=== PATIENT | male | born 1995 | race Caucasian/White ===

== ENCOUNTER 2018-12-11 21:02 | Emergency (ER) | payer OTHER ==
[~2018-12-11] VITALS: Ht 182.9 cm; Wt 152.0 kg
[2018-12-11 21:17] VITALS: BP 156/88
[2018-12-11] MEDS ORDERED: LIDOCAINE 1%-EPI 1:100,000 20 ML VIAL ONE (21:37)
[2018-12-11] MEDS ORDERED: MORPHINE SULFATE INJ 4 MG/ML DISP.SYRIN ONE (21:40)
[2018-12-11] MEDS ORDERED: LIDOCAINE 1%-EPI 1:100,000 20 ML VIAL TP ONE (22:00)
[2018-12-11] MEDS ORDERED: MORPHINE SULFATE INJ 4 MG/ML DISP.SYRIN IM ONE (22:00)
== END 2018-12-11 22:22 | disposition home or self-care (01) ==
LOC: ER 21:10
DX: L02.31 Cutaneous abscess of buttock (principal); F17.200 Nicotine dependence, unspecified, uncomplicated; E11.65 Type 2 diabetes mellitus with hyperglycemia; E66.01 Morbid (severe) obesity due to excess calories; Z68.42 Body mass index [BMI] 45.0-49.9, adult
CPT/HCPCS: 10060; 82962; 96372; 99283; 99406; A6253; A6407; J2270; J3490

== ENCOUNTER 2018-12-13 12:12 | Emergency (ER) | payer OTHER ==
[~2018-12-13] VITALS: Ht 182.9 cm; Wt 150.1 kg
[2018-12-13 12:20] VITALS: BP 144/79
== END 2018-12-13 12:45 | disposition home or self-care (01) ==
LOC: ER 12:12
DX: L02.31 Cutaneous abscess of buttock (principal); E11.9 Type 2 diabetes mellitus without complications

== ENCOUNTER 2019-02-22 14:16 | Emergency (ER) | payer OTHER ==
[~2019-02-22] VITALS: Ht 182.9 cm; Wt 149.7 kg
--- NOTE | 2019-02-22 14:25 | NUR ---
CAME IN FOR ABSCESS ON LEFT BUTTOCK, ALSO C/O REDNESS AT PENILE AREA. TO ER BED 2, HOOKED TO MONITOR, CHANGED TO HOSP GOWN, PROVIDED WW ARM BLANKET, AWAITING MD EVERETT
--- NOTE | 2019-02-22 14:33 | NUR ---
LEYDI JUAREZ AT BEDSIDE
[2019-02-22] MEDS ORDERED: LIDOCAINE 1%-EPI 1:100,000 20 ML VIAL ONE (14:39)
--- NOTE | 2019-02-22 14:48 | NUR ---
LEYDI JUAREZ AT BEDSIDE FOR I&D
--- NOTE | 2019-02-22 15:24 | NUR ---
Patient discharged to home in stable condition. Written and verbal after care instructions given. Patient verbalizes understanding of instruction.
[2019-02-22 15:25] VITALS: BP 149/85
== END 2019-02-22 15:26 | disposition home or self-care (01) ==
LOC: ER 14:17
DX: L02.31 Cutaneous abscess of buttock (principal); B37.42 Candidal balanitis; E11.65 Type 2 diabetes mellitus with hyperglycemia; E11.649 Type 2 diabetes mellitus with hypoglycemia without coma; F17.200 Nicotine dependence, unspecified, uncomplicated; E66.9 Obesity, unspecified; Z68.41 Body mass index [BMI] 40.0-44.9, adult
CPT/HCPCS: 10060; 82962; 99283; 99406; A6403; A6407; J3490

== ENCOUNTER 2019-02-24 14:26 | Emergency (ER) | payer OTHER ==
[~2019-02-24] VITALS: Ht 182.9 cm; Wt 149.7 kg
[2019-02-24 14:30] VITALS: BP 145/67
--- NOTE | 2019-02-24 15:00 | NUR ---
I&D DONE BY CLARENCE HOLLEY.
--- NOTE | 2019-02-24 15:01 | NUR ---
Patient discharged to home in stable condition. Written and verbal after care instructions given. Patient verbalizes understanding of instruction.
== END 2019-02-24 15:02 | disposition home or self-care (01) ==
LOC: ER 14:26
DX: L02.31 Cutaneous abscess of buttock (principal); E11.649 Type 2 diabetes mellitus with hypoglycemia without coma; F17.200 Nicotine dependence, unspecified, uncomplicated; E66.9 Obesity, unspecified; Z68.41 Body mass index [BMI] 40.0-44.9, adult

== ENCOUNTER 2019-05-11 22:54 | Emergency (ER) | payer OTHER ==
[~2019-05-11] VITALS: Ht 182.9 cm; Wt 150.6 kg
[2019-05-11 23:07] VITALS: BP 159/83
[2019-05-11] MEDS ORDERED: HYDROCODONE/APAP 5/325MG 1 EACH TABLET ONE (23:57)
[2019-05-11] MEDS ORDERED: LIDOCAINE 1%-EPI 1:100,000 20 ML VIAL ONE (23:59)
[2019-05-12] MEDS ORDERED: HYDROCODONE/APAP 5/325MG 1 EACH TABLET PO ONE
--- NOTE | 2019-05-12 00:01 | NUR ---
PA AT BEDSIDE FOR WOUND CARE
--- NOTE | 2019-05-12 00:41 | NUR ---
Patient discharged to home in stable condition. Written and verbal after care instructions given. Patient verbalizes understanding of instruction.
== END 2019-05-12 00:42 | disposition home or self-care (01) ==
LOC: ER 23:00
DX: L02.211 Cutaneous abscess of abdominal wall (principal); E11.9 Type 2 diabetes mellitus without complications; E66.9 Obesity, unspecified; Z68.42 Body mass index [BMI] 45.0-49.9, adult
CPT/HCPCS: 10060; 82962; 99283; A6407; J3490

== ENCOUNTER 2020-01-24 21:33 | Emergency (ER) | payer OTHER ==
[~2020-01-24] VITALS: Ht 182.9 cm; Wt 145.1 kg
[2020-01-24 22:09] LABS: BASOPHILS % (AUTO) 0.4 % (0.0-2.0); EOSINOPHILS % (AUTO) 0.9 % (0.0-6.0); HEMATOCRIT 47 % (39-51); HEMOGLOBIN 15.9 g/dL (13.5-17.5); LYMPHOCYTES # (AUTO) 2.4 /CMM (0.8-4.8); LYMPHOCYTES % (AUTO) 25.5 % (20.0-44.0); MEAN CORPUSCULAR HGB CONC 34 g/dl (31.0-36.0); MEAN CORPUSCULAR VOLUME 86 fL (80-96); MONOCYTES # (AUTO) 0.8 /CMM (0.1-1.30); MONOCYTES % (AUTO) 8.8 % (2.0-12.0); NEUTROPHILS # (AUTO) 6.2 /CMM (1.8-8.9); NEUTROPHILS % (AUTO) 64.4 % (43.0-81.0); PLATELET COUNT (AUTO) 254 /CMM (150-450); RED BLOOD CELL COUNT(AUTO) 5.48 MIL/uL (4.5-6.0); WHITE BLOOD COUNT (AUTO) 9.6 K/uL (4.3-11.0)
[2020-01-24] MEDS: IV NS 0.9% 500 ML BAG IV ONE (22:09)
[2020-01-24] MEDS: IV NS 0.9% 1,000 ML BAG IV ONE (22:09)
[2020-01-24] MEDS ORDERED: ONDANSETRON HCL/PF 4 MG/2 ML VIAL ONE (22:11)
[2020-01-24] MEDS ORDERED: KETOROLAC TROMETHAMINE INJ 30 MG/ML VIAL ONE (22:11)
[2020-01-24] MEDS: KETOROLAC TROMETHAMINE INJ 30 MG/ML VIAL IV ONE (22:17)
[2020-01-24] MEDS: ONDANSETRON HCL/PF 4 MG/2 ML VIAL IVP ONE (22:17)
[2020-01-24 22:18] LABS: CALCIUM, SERUM 8.7 mg/dL (8.5-10.1); CREATININE 0.7 mg/dL (0.6-1.3); POTASSIUM 3.9 mmol/L (3.5-5.1)
[2020-01-24 22:22] LABS: ALBUMIN 3.5 g/dL (3.4-5.0); BILIRUBIN,DIRECT 0.1 mg/dL (0.0-0.2); BILIRUBIN,TOTAL 0.2 mg/dL (0.2-1.0); TOTAL PROTEIN, SERUM 8.1 g/dL (6.4-8.2)
[2020-01-25 00:06] VITALS: BP 122/74
== END 2020-01-25 00:07 | disposition home or self-care (01) ==
LOC: ER 21:35
DX: R10.11 Right upper quadrant pain (principal); E11.65 Type 2 diabetes mellitus with hyperglycemia; E66.01 Morbid (severe) obesity due to excess calories; Z68.41 Body mass index [BMI] 40.0-44.9, adult; Z79.84 Long term (current) use of oral hypoglycemic drugs
CPT/HCPCS: 36415; 71045; 76705; 80048; 80076; 83690; 85025; 96361; 96374; 99285; J1885; J2405; J7030; J7040

== ENCOUNTER 2021-03-23 16:45 | Emergency (ER) | payer OTHER ==
[~2021-03-23] VITALS: Ht 182.9 cm; Wt 145.1 kg
[2021-03-23 17:17] VITALS: BP 141/76
--- NOTE | 2021-03-23 17:20 | NUR ---
PT BIBSELF C/O ABSCESS, TO L BUTTOCK. PT FIRST NOTICED IT 5 DAYS AGO. SKIN INTACT. SURROUNDING SKIN WNL; PINK. PT A/OX4.
[2021-03-23] MEDS ORDERED: LIDOCAINE 1%-EPI 1:100,000 20 ML VIAL TP ONE (18:30)
[2021-03-23] MEDS ORDERED: LIDOCAINE 1%-EPI 1:100,000 20 ML VIAL ONE (18:34)
--- NOTE | 2021-03-23 19:11 | NUR ---
LUKASZ HOLLEY AT PT'S BEDSIDE FOR WOUND CARE
[2021-03-23] MEDS ORDERED: SULF1TAB48 PO (19:27)
--- NOTE | 2021-03-23 20:14 | NUR ---
Patient discharged to home in stable condition. Written and verbal after care instructions given. Patient verbalizes understanding of instruction.
== END 2021-03-23 20:17 | disposition home or self-care (01) ==
LOC: ER 16:51
DX: L02.31 Cutaneous abscess of buttock (principal); E11.9 Type 2 diabetes mellitus without complications
CPT/HCPCS: 10060; 99283; A6403; J3490

== ENCOUNTER 2021-03-25 20:02 | Emergency (ER) | payer OTHER ==
[~2021-03-25] VITALS: Ht 175.3 cm; Wt 111.1 kg
[~2021-03-25 20:02] MED LIST: SULF1TAB48 PO
[2021-03-25 20:24] VITALS: BP 134/88
--- NOTE | 2021-03-25 20:24 | NUR ---
BERTA ZALDIVAR FROM HOME C/O WOUND CHECK
[2021-03-25] MEDS ORDERED: CEPH500T PO (20:29)
--- NOTE | 2021-03-25 20:35 | NUR ---
Patient discharged to home in stable condition. Written and verbal after care instructions given. Patient verbalizes understanding of instruction. PT ambulatory with a steady gait
== END 2021-03-25 21:30 | disposition home or self-care (01) ==
LOC: ER 20:04
DX: Z48.00 Encounter for change or removal of nonsurgical wound dressing (principal); L02.31 Cutaneous abscess of buttock; E11.9 Type 2 diabetes mellitus without complications; F17.200 Nicotine dependence, unspecified, uncomplicated

== ENCOUNTER 2021-05-24 21:11 | Emergency (ER) | payer OTHER ==
[~2021-05-24] VITALS: Ht 182.9 cm; Wt 145.1 kg
[~2021-05-24 21:11] MED LIST changes: +CEPH500T PO
--- NOTE | 2021-05-24 23:19 | NUR ---
BIBS C/O RIGHT LOWER QUADRANT PAIN [id number]. PATIENT ALERT AND ORIENTED X3. AMBULATORY WITH NON LABORED BREATHING PLACED IN A GOWN ON BED 2 ON MONITOR AWAITING MD EVERETT.
--- NOTE | 2021-05-24 23:32 | NUR ---
URINE COLLECTED AND SENT TO LAB
--- NOTE | 2021-05-24 23:46 | NUR ---
PT TAKEN FOR CT SCAN
[2021-05-24 23:56] LABS: BASOPHILS # (AUTO) 0.1 K/uL (0.0-0.2); BASOPHILS % (AUTO) 0.9 % (0.0-2.0); EOSINOPHILS % (AUTO) 1.5 % (0.0-6.0); HEMATOCRIT 47 % (39-51); HEMOGLOBIN 15.7 g/dL (13.5-17.5); LYMPHOCYTES # (AUTO) 3.1 K/uL (0.8-4.8); LYMPHOCYTES % (AUTO) 32.3 % (20.0-44.0); MEAN CORPUSCULAR HGB CONC 34 g/dl (31.0-36.0); MEAN CORPUSCULAR VOLUME 82 fL (80-96); MONOCYTES # (AUTO) 1.1 K/uL (0.1-1.30); MONOCYTES % (AUTO) 11.7 % (2.0-12.0); NEUTROPHILS # (AUTO) 5.1 K/uL (1.8-8.9); NEUTROPHILS % (AUTO) 53.6 % (43.0-81.0); PLATELET COUNT (AUTO) 263 K/uL (150-450); RED BLOOD CELL COUNT(AUTO) 5.65 MIL/uL (4.5-6.0); WHITE BLOOD COUNT (AUTO) 9.6 K/uL (4.3-11.0)
[2021-05-25 00:36] LABS: ALBUMIN 3.6 g/dL (3.4-5.0); BILIRUBIN,DIRECT 0.1 mg/dL (0.0-0.2); BILIRUBIN,TOTAL 0.3 mg/dL (0.2-1.0); CALCIUM, SERUM 8.8 mg/dL (8.5-10.1); CREATININE 0.8 mg/dL (0.6-1.3); POTASSIUM 4.1 mmol/L (3.5-5.1)
[2021-05-25 01:00] LABS: BILIRUBIN,URINE NEGATIVE (NEGATIVE); COLOR,URINE YELLOW (YELLOW); LEUKOCYTE ESTERASE ,URINE NEGATIVE (NEGATIVE); NITRITE, URINE NEGATIVE (NEGATIVE); PROTEIN,URINE NEGATIVE (NEGATIVE); UGLUCOSE >=1000 mg/dL (NEGATIVE); UROBILINOGEN,URINE 0.2 EU/dL (0.2)
[2021-05-25 01:06] LABS: BACTERIA,URINE None seen /HPF (None Seen); RBC,URINE 0-2 /HPF (0-2); SQUAMOUS EPITHELIAL CELL,UR Few /HPF (None Seen); WBC,URINE 0-2 /HPF (0-3)
[2021-05-25] MEDS ORDERED: IOHEXOL-300 100 ML VIAL IV ONE (01:21)
[2021-05-25] MEDS ORDERED: DIATR MEGLU/DIATRIZOATE SODIUM 120 ML BOTTLE (GASTROGRAPHIN) ONE (01:21)
[2021-05-25] MEDS ORDERED: IV NS 0.9% 250 ML IV ONE (01:36)
--- NOTE | 2021-05-25 01:45 | NUR ---
IV LINE ESTABLISHED , RAC 20G
--- NOTE | 2021-05-25 04:28 | NUR ---
CALLED [facility] TO HAVE IMAGES READ. RADIOLOGIST READING IMAGE NOW
[2021-05-25] MEDS ORDERED: AMOX-430 PO (05:11)
--- NOTE | 2021-05-25 05:13 | NUR ---
Patient discharged to home in stable condition. Written and verbal after care instructions given. Patient verbalizes understanding of instruction.
[2021-05-25 05:22] VITALS: BP 131/70
== END 2021-05-25 05:22 | disposition home or self-care (01) ==
LOC: ER 21:16
DX: K52.9 Noninfective gastroenteritis and colitis, unspecified (principal); K59.00 Constipation, unspecified; K76.0 Fatty (change of) liver, not elsewhere classified; E11.9 Type 2 diabetes mellitus without complications; F17.200 Nicotine dependence, unspecified, uncomplicated
CPT/HCPCS: 36415; 74176; 74177; 80048; 80076; 81001; 83690; 85025; 99285; J7050; Q9963; Q9967

== ENCOUNTER 2022-02-21 21:52 | Emergency (ER) | payer OTHER ==
[~2022-02-21] VITALS: Ht 182.9 cm; Wt 145.1 kg
[~2022-02-21 21:52] MED LIST changes: +AMOX-430 PO
--- NOTE | 2022-02-21 22:14 | NUR ---
DR JIM AT [facility] SIDE
--- NOTE | 2022-02-21 22:15 | NUR ---
BIBS FOR C/O L SIDED CP AND SOB X 2 HOURS. PT AOX4. O2 SAT 94% ON RA. COUGHING. PT AMBULATORY. CONNECTED TO MONITOR AND PULSE OX
[2022-02-21] MEDS ORDERED: ALBUTEROL FS 2.5 MG/0.5 ML VIAL.NEB ONE (22:24)
--- NOTE | 2022-02-21 22:29 | NUR ---
BLOOD DRAWN AND SENT TO LAB
[2022-02-21] MEDS ORDERED: ALBUTEROL FS 2.5 MG/0.5 ML VIAL.NEB NEB ONE (22:30)
--- NOTE | 2022-02-21 22:36 | NUR ---
COVID SWAB DONE SENT TO LAB
[2022-02-21 22:45] LABS: BASOPHILS % (AUTO) 0.6 % (0.0-2.0); EOSINOPHILS % (AUTO) 1.2 % (0.0-6.0); HEMATOCRIT 46 % (39-51); HEMOGLOBIN 15.5 g/dL (13.5-17.5); LYMPHOCYTES # (AUTO) 2.4 K/uL (0.8-4.8); LYMPHOCYTES % (AUTO) 36.6 % (20.0-44.0); MEAN CORPUSCULAR HGB CONC 34 g/dl (31.0-36.0); MEAN CORPUSCULAR VOLUME 83 fL (80-96); MONOCYTES # (AUTO) 0.6 K/uL (0.1-1.30); MONOCYTES % (AUTO) 8.9 % (2.0-12.0); NEUTROPHILS # (AUTO) 3.5 K/uL (1.8-8.9); NEUTROPHILS % (AUTO) 52.7 % (43.0-81.0); PLATELET COUNT (AUTO) 232 K/uL (150-450); RED BLOOD CELL COUNT(AUTO) 5.55 MIL/uL (4.5-6.0); WHITE BLOOD COUNT (AUTO) 6.6 K/uL (4.3-11.0)
[2022-02-21 22:51] LABS: CALCIUM, SERUM 8.1 mg/dL (8.5-10.1); CARBON DIOXIDE 29 mmol/L (21-32); CHLORIDE 102 mmol/L (98-107); CREATININE 0.8 mg/dL (0.6-1.3); GLUCOSE 197 mg/dL (74-106); POTASSIUM 3.4 mmol/L (3.5-5.1); SODIUM SERUM 137 mmol/L (136-145); UREA NITROGEN, BLOOD 12 mg/dL (7-18)
[2022-02-22 01:17] VITALS: BP 120/70
== END 2022-02-22 01:15 | disposition home or self-care (01) ==
LOC: ER 21:53
DX: U07.1 COVID-19 (principal); J98.01 Acute bronchospasm; R07.9 Chest pain, unspecified; F17.290 Nicotine dependence, other tobacco product, uncomplicated; E11.9 Type 2 diabetes mellitus without complications; R00.0 Tachycardia, unspecified
CPT/HCPCS: 99285; 71045; 87426; 99406; 93005; 85025; 80048; 85378; 36415 ×2; 84484 ×2; 94640; C9803

== ENCOUNTER 2023-02-19 14:54 | Emergency (ER) | payer MEDICAID, OTHER ==
[~2023-02-19] VITALS: Ht 182.9 cm; Wt 158.8 kg
[2023-02-19] MEDS ORDERED: LIDOCAINE 1%-EPI 1:100,000 20 ML VIAL TP ONE (16:00)
[2023-02-19] MEDS ORDERED: LIDOCAINE 1%-EPI 1:100,000 20 ML VIAL ONE (16:52)
[2023-02-19] MEDS ORDERED: SULF1TAB48 PO (17:13)
[2023-02-19] MEDS ORDERED: TRAM50TA2 PO (17:13)
[2023-02-19] MEDS ORDERED: HYDROCODONE/APAP 5/325MG TABLET PO ONE (17:30)
[2023-02-19] MEDS ORDERED: SULFAMETH/TRIMETH 800/160 MG 1 UDTAB TABLET PO ONE (17:30)
[2023-02-19 18:23] VITALS: BP 124/75; TEMP 98.2; O2SAT 99
== END 2023-02-19 17:00 | disposition home or self-care (01) ==
LOC: ER 15:06
DX: L02.215 Cutaneous abscess of perineum (principal); E11.9 Type 2 diabetes mellitus without complications; F17.200 Nicotine dependence, unspecified, uncomplicated
CPT/HCPCS: 46050; 99284; J3490

== ENCOUNTER 2023-08-19 15:58 | Emergency (ER) | payer MEDICAID ==
[~2023-08-19] VITALS: Ht 182.9 cm; Wt 136.5 kg
[~2023-08-19 15:58] MED LIST changes: +TRAM50TA2 PO
[2023-08-19 18:12] LABS: BASOPHILS % (AUTO) 0.4 % (0.0-2.0); EOSINOPHILS # (AUTO) 0.1 K/uL (0.0-0.7); EOSINOPHILS % (AUTO) 0.7 % (0.0-6.0); HEMATOCRIT 41 % (39-51); HEMOGLOBIN 14.1 g/dL (13.5-17.5); LYMPHOCYTES # (AUTO) 1.1 K/uL (0.8-4.8); LYMPHOCYTES % (AUTO) 13.1 % (20.0-44.0); MEAN CORPUSCULAR HEMOGLOBIN 28 PG (26.0-33.0); MEAN CORPUSCULAR HGB CONC 35 g/dl (31.0-36.0); MEAN CORPUSCULAR VOLUME 82 fL (80-96); MONOCYTES % (AUTO) 12.1 % (2.0-12.0); NEUTROPHILS % (AUTO) 73.7 % (43.0-81.0); PLATELET COUNT (AUTO) 198 K/uL (150-450); RED BLOOD CELL COUNT(AUTO) 4.95 MIL/uL (4.5-6.0); WHITE BLOOD COUNT (AUTO) 8.1 K/uL (4.3-11.0)
[2023-08-19] MEDS ORDERED: IOHEXOL-300 100 ML VIAL IV ONE (18:22)
[2023-08-19] MEDS ORDERED: IV NS 0.9% 250 ML IV ONE (18:22)
[2023-08-19 18:38] LABS: CALCIUM, SERUM 9.3 mg/dL (8.5-10.1); CREATININE 0.8 mg/dL (0.6-1.3); POTASSIUM 3.7 mmol/L (3.5-5.1)
[2023-08-19 18:44] LABS: ALBUMIN 2.7 g/dL (3.4-5.0); BILIRUBIN,TOTAL 0.5 mg/dL (0.2-1.0); TOTAL PROTEIN, SERUM 8.2 g/dL (6.4-8.2)
[2023-08-19] MEDS ORDERED: LIDOCAINE 0.5% HCL 50 ML VIAL ONE (19:40)
[2023-08-19] MEDS ORDERED: HYDROCODONE/APAP 5/325MG TABLET ONE (21:04)
[2023-08-19] MEDS ORDERED: CEPHALEXIN MONOHYDRATE 500 MG CAPSULE PO ONE (21:05)
[2023-08-19] MEDS ORDERED: SULFAMETH/TRIMETH 800/160 MG 1 UDTAB TABLET ONE (21:05)
[2023-08-19] MEDS: CEPHALEXIN MONOHYDRATE 500 MG CAPSULE PO ONE (21:11)
[2023-08-19] MEDS: SULFAMETH/TRIMETH 800/160 MG 1 UDTAB TABLET PO ONE (21:11)
[2023-08-19] MEDS: HYDROCODONE/APAP 5/325MG TABLET PO ONE (21:11)
[2023-08-19] MEDS ORDERED: HYDR-4209 PO (21:15)
[2023-08-19] MEDS ORDERED: CEPH500C2 PO (21:15)
[2023-08-19] MEDS ORDERED: SULF1TAB48 PO (21:15)
[2023-08-19 21:35] VITALS: BP 138/75; TEMP 98.4; O2SAT 100
== END 2023-08-19 21:35 | disposition home or self-care (01) ==
LOC: ER 16:02
DX: L02.214 Cutaneous abscess of groin (principal); E11.9 Type 2 diabetes mellitus without complications; F17.200 Nicotine dependence, unspecified, uncomplicated; Z79.899 Other long term (current) drug therapy
CPT/HCPCS: 99285; 74177; 10060; 85025; 36415; 80053; J3490; J7050; A6403; Q9967

== ENCOUNTER 2023-11-22 17:49 | Emergency (ER) | payer MEDICAID ==
[~2023-11-22] VITALS: Ht 182.9 cm; Wt 138.3 kg
[~2023-11-22 17:49] MED LIST changes: +CEPH500C2 PO; +HYDR-4209 PO
[2023-11-22 18:32] VITALS: BP 129/73; TEMP 97.9; O2SAT 99
[2023-11-22] MEDS: PIPERACILLIN /TAZOBACTAM 3.375 G in IV D5W 50 ML IV ONE (18:50)
[2023-11-22 18:53] LABS: BASOPHILS # (AUTO) 0.1 K/uL (0.0-0.2); BASOPHILS % (AUTO) 0.7 % (0.0-2.0); EOSINOPHILS # (AUTO) 0.1 K/uL (0.0-0.7); EOSINOPHILS % (AUTO) 0.7 % (0.0-6.0); HEMATOCRIT 47 % (39-51); HEMOGLOBIN 16.3 g/dL (13.5-17.5); LYMPHOCYTES # (AUTO) 2.7 K/uL (0.8-4.8); LYMPHOCYTES % (AUTO) 19.1 % (20.0-44.0); MEAN CORPUSCULAR HEMOGLOBIN 29 PG (26.0-33.0); MEAN CORPUSCULAR HGB CONC 35 g/dl (31.0-36.0); MEAN CORPUSCULAR VOLUME 83 fL (80-96); MONOCYTES # (AUTO) 1.3 K/uL (0.1-1.30); MONOCYTES % (AUTO) 9.5 % (2.0-12.0); NEUTROPHILS # (AUTO) 9.7 K/uL (1.8-8.9); PLATELET COUNT (AUTO) 320 K/uL (150-450); RED BLOOD CELL COUNT(AUTO) 5.69 MIL/uL (4.5-6.0); RED CELL DISTRIBUTION WIDTH 13.3 % (11.5-15.0); WHITE BLOOD COUNT (AUTO) 13.9 K/uL (4.3-11.0)
[2023-11-22 18:57] LABS: CALCIUM, SERUM 9.2 mg/dL (8.5-10.1); CREATININE 0.8 mg/dL (0.6-1.3); POTASSIUM 3.7 mmol/L (3.5-5.1)
[2023-11-22 19:01] LABS: INR 1.03 (0.91-1.10); PARTIAL THROMBOPLASTIN TIME 25.7 SEC (24.3-34.3); PROTHROMBIN TIME 10.6 SECS (9.2-11.1)
[2023-11-22 20:34] LABS: EOSINOPHILS % (MANUAL) 1 % (0-4); LYMPHOCYTES % (MANUAL) 33 % (16-48); MONOCYTES % (MANUAL) 6 % (0-11.0); NEUTROPHILS % (MANUAL) 60 (42-76); PLATELET ESTIMATE ADEQUATE
[2023-11-22 20:35] LABS: ANISOCYTOSIS 1+
== END 2023-11-22 23:05 | disposition left against medical advice (07) ==
LOC: ER 17:55
DX: L02.214 Cutaneous abscess of groin (principal); E11.9 Type 2 diabetes mellitus without complications; F17.200 Nicotine dependence, unspecified, uncomplicated; R10.2 Pelvic and perineal pain; Z20.822 Contact with and (suspected) exposure to COVID-19
CPT/HCPCS: 99285; 96365; 71045; 87426; 93005; 85025; 80048; 87040; 36415; 85730; 85007; J2543; J7060